=== PATIENT | female | born 1930 | race Caucasian/White ===

== ENCOUNTER 2017-07-03 10:34 | Emergency (ER) | payer MEDICARE, OTHER ==
[~2017-07-03] VITALS: Ht 167.6 cm; Wt 79.0 kg
[~2017-07-03 10:34] MED LIST: ASCO10004 PO; ASPI-496 PO; CALC-112 PO; DILT180C72 PO; ESTR0.3T PO; GABA100C PO; LOVA40TA2 PO; MAGNESIUM PO; MULT-464 PO; NAPR220C2 PO; OLME1TAB22 PO; OMEG-14 PO; PYRI50TA5 PO; SULF-169 PO; TRAM50TA2 PO; VITA400C14 PO
[2017-07-03 11:02] LABS: MICROSCOPIC AUTO
[2017-07-03 11:04] LABS: CULTURE INDICATED? YES
[2017-07-03 11:29] LABS: BASOPHILS # (AUTO) 0.02 x10^3/uL (0-0.1); BASOPHILS % (AUTO) 0 % (0-1); EOSINOPHILS # (AUTO) 0.13 x10^3/uL (0-0.4); EOSINOPHILS % (AUTO) 2 % (1-7); LYMPHOCYTES # (AUTO) 0.98 x10^3/uL (1-3.4); LYMPHOCYTES % (AUTO) 13 % (22-44); MD NO; MEAN CORPUSCULAR HEMOGLOBIN 30.2 pg (27.0-34.8); MEAN CORPUSCULAR HGB CONC 33.3 g/dL (32.4-35.8); MEAN CORPUSCULAR VOLUME 90.6 fL (80-100); MEAN PLATELET VOLUME 10.2 fL (7.4-10.4); MONOCYTES # (AUTO) 0.31 x10^3/uL (0.2-0.8); MONOCYTES % (AUTO) 4 % (2-9); NEUTROPHILS # (AUTO) 5.85 x10^3/uL (1.8-6.8); NEUTROPHILS % (AUTO) 80 % (42-75); PLATELET COUNT 168 x10^3/uL (130-400); RED BLOOD COUNT 4.89 x10^6/uL (3.82-5.3); RED CELL DISTRIBUTION WIDTH 13.1 % (9.6-15.2)
[2017-07-03] MEDS ORDERED: SODIUM CHLORIDE 0.9% 1,000ML IVBOLUS ONE (11:30)
[2017-07-03 11:42] LABS: ALBUMIN 3.9 g/dL (3.4-5.0); ANION GAP 3 mmol/L (5-15); CALCIUM 9.5 mg/dL (8.5-10.1); CHLORIDE 108 mmol/L (98-107); CREATININE 0.83 mg/dL (0.55-1.02)
[2017-07-03 11:45] LABS: TROPONIN I < 0.015 ng/mL (0.000-0.045)
[2017-07-03] MEDS ORDERED: SODIUM CHLORIDE FLUSH 10ML SYR IVF ONE (12:30)
[2017-07-03 12:49] VITALS: BP 135/77
== END 2017-07-03 12:56 | disposition home or self-care (01) ==
LOC: ED 11:14 → EDIP 12:33 → UNDOADMIN 12:33 → ED 12:56
DX: R42 Dizziness and giddiness (principal); R53.1 Weakness; E86.0 Dehydration; N30.91 Cystitis, unspecified with hematuria; I10 Essential (primary) hypertension; E78.00 Pure hypercholesterolemia, unspecified; Z90.710 Acquired absence of both cervix and uterus; Z98.51 Tubal ligation status
CPT/HCPCS: 36415; 71045; 80048; 81001; 82040; 84484; 85025; 87077; 87086; 87186; 93005; 96360; 99285; J7030

== ENCOUNTER 2019-05-03 19:02 | Inpatient (IN) | payer MEDICARE ==
[~2019-05-03] VITALS: Ht 160 cm; Wt 83.6 kg
[~2019-05-03 19:02] MED LIST changes: -PYRI50TA5 PO; +PYRI50TA7 PO
[2019-05-03] MEDS ORDERED: SODIUM CHLORIDE FLUSH 10ML SYR IVF ONE (20:00)
--- NOTE | 2019-05-03 20:00 | NUR ---
FIRST CONTACT WITH PT. PWD. PT SITTING UP IN [facility], NAD NOTED. PT REPORTS 'FEELING SICK' X SEVERAL DAYS, WORSENING TODAY WITH SOB AND "HEAVY" CHEST W/ ACTIVITY. +PRODUCTIVE COUGH W/ YELLOW SPUTUM. CP NONRADIATING. DENIES SOB/N/V. BP/SPO2/ECG MONITORING IN PLACE. NSR ON MONITOR. SPO2 >90% ON 2L BY NC. DOES NOT WEAR O2 AT BASELINE.
[2019-05-03 20:33] LABS: BASOPHILS # (AUTO) 0.06 x10^3/uL (0-0.1); BASOPHILS % (AUTO) 1 % (0-1); EOSINOPHILS # (AUTO) 0.36 x10^3/uL (0-0.4); EOSINOPHILS % (AUTO) 5 % (1-7); LYMPHOCYTES # (AUTO) 1.01 x10^3/uL (1-3.4); LYMPHOCYTES % (AUTO) 13 % (22-44); MD NO; MEAN CORPUSCULAR HGB CONC 32.1 g/dL (32.4-35.8); MEAN CORPUSCULAR VOLUME 84.1 fL (80-100); MEAN PLATELET VOLUME 9.3 fL (7.4-10.4); MONOCYTES # (AUTO) 0.66 x10^3/uL (0.2-0.8); MONOCYTES % (AUTO) 9 % (2-9); NEUTROPHILS # (AUTO) 5.58 x10^3/uL (1.8-6.8); NEUTROPHILS % (AUTO) 73 % (42-75); PLATELET COUNT 211 x10^3/uL (130-400); RED BLOOD COUNT 3.69 x10^6/uL (3.82-5.3); RED CELL DISTRIBUTION WIDTH 14.8 % (9.6-15.2)
[2019-05-03 20:39] LABS: ANION GAP 6 mmol/L (5-15); CALCIUM 8.8 mg/dL (8.5-10.1); CHLORIDE 110 mmol/L (98-107); CREATININE 0.77 mg/dL (0.55-1.02)
[2019-05-03 20:40] LABS: ALANINE AMINOTRANSFERASE 17 U/L (12-78); ALBUMIN 3.4 g/dL (3.4-5.0)
[2019-05-03 20:43] LABS: ALKALINE PHOSPHATASE 89 U/L (45-117); BILIRUBIN,TOTAL 0.3 mg/dL (0.2-1.0); TROPONIN I < 0.015 ng/mL (0.000-0.045)
--- NOTE | 2019-05-03 21:17 | NUR ---
PT ASSISTED TO BEDSIDE COMMODE. DENIES INCREASE IN CHEST HEAVINESS/SOB WITH ACTIVITY. SPO2 >90% ON 2L BY NC. AWAITING CTA
[2019-05-03] MEDS ORDERED: OMNIPAQUE 350 MG/ML, 100ML BOTTLE ONE (21:48)
--- NOTE | 2019-05-03 22:00 | NUR ---
PT SITTING UP IN [facility] YOU NOTED.
--- NOTE | 2019-05-03 22:39 | NUR ---
RA TRIAL, PT SPO2 88-91%. RESPIRATIONS EVEN/UNLABORED. PT SPEAKING IN FULL SENTENCES WO DIFFICULTY. ERP AT BEDSIDE TO DISCUSS FINDINGS AND POC
[2019-05-03] MEDS ORDERED: FUROSEMIDE 40 MG/4 ML IV ONE (23:30)
[2019-05-03] MEDS ORDERED: MORPHINE SULFATE 4 MG/ML, 1ML IVPush PRN (23:30)
[2019-05-03] MEDS ORDERED: SODIUM CHLORIDE FLUSH 10ML SYR IVF PRN (23:30)
[2019-05-03] MEDS ORDERED: AZITHROMYCIN 500 MG in SODIUM CHLORIDE 0.9% 250 ML IVPB ONE (23:30)
[2019-05-03] MEDS ORDERED: ONDANSETRON 2MG/ML, 2ML IVPush PRN (23:30)
[2019-05-03] MEDS ORDERED: CEFTRIAXONE PMX 1GM/50ML 50 ML IVPB ONE (23:30)
[2019-05-03] MEDS ORDERED: FUROSEMIDE 40 MG/4 ML ONE (23:42)
[2019-05-03] MEDS ORDERED: CEFTRIAXONE PMX 1GM/50ML 50 ML ONE (23:42)
[2019-05-03] MEDS ORDERED: POTASSIUM CHLORIDE 20 MEQ TAB.ER.PRT ONE (23:51)
--- NOTE | 2019-05-03 23:56 | NUR ---
PT MEDICATED PER EMAR. BC X2 DRAWN PRIOR TO ABX ADM. GIVEN LASIX, K+3.6. ERP AWARE. ORDERS RECEIVED FOR PO K+. PT MEDICATED PER EMAR.
[2019-05-04] MEDS ORDERED: POTASSIUM CHLORIDE 20 MEQ TAB.ER.PRT PO ONE
--- NOTE | 2019-05-04 00:27 | NUR ---
PT ASSISTED TO COMMODE. SECOND ABX INITIATED. REPORT TO NATALIA JENSEN.
[2019-05-04 01:24] VITALS: BP 174/84
[2019-05-04] MEDS ORDERED: POTASSIUM CHLORIDE 20 MEQ in SODIUM CHLORIDE 0.9% 250 ML IV ONE (03:00)
[2019-05-04 06:59] VITALS: BP 180/70
[2019-05-04] MEDS ORDERED: TEMAZEPAM 15 MG CAPSULE PO PRN (09:00)
[2019-05-04] MEDS ORDERED: GUAIFENESIN/DM 200-20MG, 10ML UDC PO PRN (09:00)
[2019-05-04] MEDS ORDERED: ACETAMINOPHEN 325 MG TABLET PO PRN (09:00)
[2019-05-04] MEDS ORDERED: DOCUSATE 100 MG CAPSULE PO PRN (09:00)
[2019-05-04] MEDS: ENOXAPARIN 40 MG/0.4 ML SQ SCH (09:27)
[2019-05-04] MEDS: SODIUM CHLORIDE FLUSH 10ML SYR IVF SCH ×2 (09:28→21:25)
[2019-05-04] MEDS ORDERED: CEFTRIAXONE PMX 1GM/50ML 50 ML IV SCH (09:30)
[2019-05-04 14:50] VITALS: BP 168/78
[2019-05-04 15:34] VITALS: BP 166/88
[2019-05-04] MEDS: MELOXICAM 15 MG TABLET PO SCH (15:35)
[2019-05-04] MEDS: FUROSEMIDE 20 MG TABLET PO SCH (15:35)
[2019-05-04 19:30] VITALS: BP 128/60
[2019-05-04] MEDS ORDERED: DILTIAZEM CD 180 MG CAP.ER.24H PO SCH (21:00)
[2019-05-04] MEDS ORDERED: DILTIAZEM 240 MG CAP.ER.24H PO SCH (21:00)
[2019-05-04] MEDS: GABAPENTIN 100 MG CAPSULE PO SCH (21:24)
[2019-05-05 00:18] VITALS: BP 154/77
[2019-05-05 05:26] LABS: ANION GAP 6 mmol/L (5-15); CALCIUM 9.1 mg/dL (8.5-10.1); CHLORIDE 105 mmol/L (98-107)
[2019-05-05 05:27] LABS: CREATININE 0.83 mg/dL (0.55-1.02)
[2019-05-05 05:31] LABS: BASOPHILS # (AUTO) 0.03 x10^3/uL (0-0.1); BASOPHILS % (AUTO) 1 % (0-1); EOSINOPHILS # (AUTO) 0.39 x10^3/uL (0-0.4); EOSINOPHILS % (AUTO) 7 % (1-7); LYMPHOCYTES # (AUTO) 1.27 x10^3/uL (1-3.4); LYMPHOCYTES % (AUTO) 23 % (22-44); MD NO; MEAN CORPUSCULAR HEMOGLOBIN 27.4 pg (27.0-34.8); MEAN CORPUSCULAR HGB CONC 32.6 g/dL (32.4-35.8); MEAN CORPUSCULAR VOLUME 84.2 fL (80-100); MEAN PLATELET VOLUME 9.9 fL (7.4-10.4); MONOCYTES # (AUTO) 0.68 x10^3/uL (0.2-0.8); MONOCYTES % (AUTO) 12 % (2-9); NEUTROPHILS # (AUTO) 3.28 x10^3/uL (1.8-6.8); NEUTROPHILS % (AUTO) 58 % (42-75); PLATELET COUNT 204 x10^3/uL (130-400); RED BLOOD COUNT 3.66 x10^6/uL (3.82-5.3); RED CELL DISTRIBUTION WIDTH 14.9 % (9.6-15.2)
[2019-05-05 07:20] VITALS: BP 170/74
[2019-05-05] MEDS ORDERED: POTASSIUM CHLORIDE 20 MEQ TAB.ER.PRT PO SCH (08:00)
[2019-05-05] MEDS: ENOXAPARIN 40 MG/0.4 ML SQ SCH (09:00)
[2019-05-05] MEDS: FUROSEMIDE 20 MG TABLET PO SCH (09:00)
[2019-05-05] MEDS ORDERED: AZITHROMYCIN 500 MG TABLET PO SCH (09:00)
[2019-05-05] MEDS ORDERED: ASPIRIN 81 MG TABLET EC PO SCH (09:00)
[2019-05-05] MEDS ORDERED: LOVASTATIN 40 MG TABLET PO SCH (09:00)
[2019-05-05] MEDS: GABAPENTIN 100 MG CAPSULE PO SCH (09:01)
[2019-05-05] MEDS: MELOXICAM 15 MG TABLET PO SCH (09:01)
[2019-05-05] MEDS: SODIUM CHLORIDE FLUSH 10ML SYR IVF SCH (09:01)
[2019-05-05 10:00] VITALS: BP 159/84
[2019-05-05 12:00] VITALS: BP 170/80
[2019-05-05] MEDS ORDERED: FURO20TA3 PO (13:50)
[2019-05-05] MEDS ORDERED: POTA20TA6 PO (13:50)
[2019-05-05] MEDS ORDERED: LOSA25TA25 PO (13:50)
[2019-05-05] MEDS ORDERED: AZIT500T10 PO (13:50)
[2019-05-05] MEDS ORDERED: MELO15TA24 PO (13:50)
[2019-05-05] MEDS ORDERED: LOSARTAN 25MG TABLET PO SCH (14:00)
== END 2019-05-05 15:36 | disposition home or self-care (01) | DRG 202 ==
LOC: ED 23:56 → EDIP 05-04 00:39 → 5SO 05-04 01:25 → DCLOUNGE 05-05 15:36
PROVIDERS: ADMIT Internal Medicine; ATTEND Internal Medicine
DX: J20.9 Acute bronchitis, unspecified (principal); I50.20 Unspecified systolic (congestive) heart failure; I11.0 Hypertensive heart disease with heart failure; Z88.7 Allergy status to serum and vaccine; E78.00 Pure hypercholesterolemia, unspecified; E78.5 Hyperlipidemia, unspecified; M16.12 Unilateral primary osteoarthritis, left hip; R09.02 Hypoxemia; Z82.49 Family history of ischemic heart disease and other diseases of the circulatory system; Z90.49 Acquired absence of other specified parts of digestive tract; Z90.710 Acquired absence of both cervix and uterus; Z96.642 Presence of left artificial hip joint; Z98.41 Cataract extraction status, right eye; Z98.42 Cataract extraction status, left eye
CPT/HCPCS: 36415; 71045; 71275; 80048; 80053; 83735; 83880; 84484; 85025; 87040; 93005; 93306; 96365; G0378; J0456; J0696; J1650; J1940; J3480; Q9967; J7050

== ENCOUNTER 2019-06-04 12:30 | Observation (INO) | payer MEDICARE ==
[~2019-06-04] VITALS: Ht 160 cm; Wt 82.4 kg
[~2019-06-04 12:30] MED LIST changes: +AZIT500T10 PO; +FURO20TA3 PO; +LOSA25TA25 PO; +MELO15TA24 PO; +POTA20TA6 PO
--- NOTE | 2019-06-04 12:48 | NUR ---
Pt BIB [facility] from home with c/o intermittent substernal CP radiating to back x1 hour. Pt states pain when present is "dull and aching" also c/o nausea, no vomiting. Pt states no pain currently. Pt placed in gown, positioned for comfort in bed. Continuous oxygen, heart and BP monitors applied, all safety measures observed.
--- NOTE | 2019-06-04 12:55 | NUR ---
break RN note: report received from NATALIA Leal. EKG taken by this RN upon arrival, given to MD De Guzman for review. MD at bedside for initial assessment at this time.
[2019-06-04 13:14] LABS: BASOPHILS # (AUTO) 0.03 x10^3/uL (0-0.1); BASOPHILS % (AUTO) 0 % (0-1); EOSINOPHILS # (AUTO) 0.11 x10^3/uL (0-0.4); EOSINOPHILS % (AUTO) 1 % (1-7); LYMPHOCYTES % (AUTO) 11 % (22-44); MD NO; MEAN CORPUSCULAR HEMOGLOBIN 24.5 pg (27.0-34.8); MEAN PLATELET VOLUME 9.2 fL (7.4-10.4); MONOCYTES # (AUTO) 0.78 x10^3/uL (0.2-0.8); MONOCYTES % (AUTO) 9 % (2-9); NEUTROPHILS # (AUTO) 7.23 x10^3/uL (1.8-6.8); NEUTROPHILS % (AUTO) 79 % (42-75); PLATELET COUNT 241 x10^3/uL (130-400); RED BLOOD COUNT 4.75 x10^6/uL (3.82-5.3); RED CELL DISTRIBUTION WIDTH 16.6 % (9.6-15.2)
[2019-06-04 13:24] LABS: ALBUMIN 3.8 g/dL (3.4-5.0); ANION GAP 4 mmol/L (5-15); CALCIUM 9.5 mg/dL (8.5-10.1); CHLORIDE 104 mmol/L (98-107)
[2019-06-04 13:29] LABS: CREATININE 0.92 mg/dL (0.55-1.02); TROPONIN I < 0.015 ng/mL (0.000-0.045)
--- NOTE | 2019-06-04 13:30 | NUR ---
Pt provided warm blanket per request, denies other needs.
--- NOTE | 2019-06-04 13:37 | NUR ---
dr mensah spoke with dr guo
[2019-06-04] MEDS ORDERED: MORPHINE SULFATE 4 MG/ML, 1ML IVPush PRN (14:00)
[2019-06-04] MEDS ORDERED: ONDANSETRON 2MG/ML, 2ML IVPush ONE (14:00)
[2019-06-04] MEDS ORDERED: ONDANSETRON 2MG/ML, 2ML ONE (14:07)
[2019-06-04] MEDS ORDERED: MORPHINE SULFATE 4 MG/ML, 1ML ONE (14:08)
--- NOTE | 2019-06-04 14:10 | NUR ---
TASK RN: CONTACT WITH PT, "I'M SO UNCOMFORTABLE. MY CHEST. I DONT KNOW WHAT TO DO" DISCUSSED WITH PT, ORDER FOR MORPHINE AND ZOFRAN. PT DENIES NAUSEA AT THIS TIME. PT AGREEABLE TO MEDICAITONS ORDERED.
[2019-06-04] MEDS ORDERED: GABA100C PO (14:31)
[2019-06-04] MEDS ORDERED: CRAN425C4 PO (14:31)
[2019-06-04] MEDS ORDERED: AMOX-291 PO (14:31)
[2019-06-04] MEDS ORDERED: ROSU5TAB PO (14:31)
[2019-06-04] MEDS ORDERED: SPIR50TA4 PO (14:31)
--- NOTE | 2019-06-04 14:32 | NUR ---
DR CULP AT BEDSIDE TO EVAL PT. PT STATES "PAIN A LITTLE BETTER THAN IT WAS" MED REC COMPLETED FROM LIST PT PROVIDED.
[2019-06-04] MEDS ORDERED: NITROGLYCERIN 0.4 MG BOTTLE (25 TABS) SL PRN (15:00)
[2019-06-04] MEDS ORDERED: NITROGLYCERIN 0.4 MG/SPRAY SL PRN (15:00)
[2019-06-04 16:33] VITALS: BP 89/50
[2019-06-04] MEDS ORDERED: NITROGLYCERIN OINT 2%, 1GM TP ONE (17:00)
[2019-06-04 17:44] LABS: TROPONIN I < 0.015 ng/mL (0.000-0.045)
[2019-06-04 20:47] VITALS: BP 105/58
[2019-06-04] MEDS ORDERED: DILTIAZEM 240 MG CAP.ER.24H PO SCH (21:00)
[2019-06-04] MEDS ORDERED: OMNIPAQUE 350 MG/ML, 100ML BOTTLE ONE (23:38)
[2019-06-05 02:38] VITALS: BP 125/68
[2019-06-05 07:52] VITALS: BP 113/59
[2019-06-05] MEDS ORDERED: SPIRONOLACTONE 50 MG TABLET PO SCH (09:00)
[2019-06-05] MEDS ORDERED: ASPIRIN 81 MG TABLET EC PO SCH (09:00)
[2019-06-05] MEDS ORDERED: LOSARTAN 25MG TABLET PO SCH (09:00)
[2019-06-05] MEDS ORDERED: REGADENOSON 0.4 MG/5 ML SYRINGE ONE (09:12)
[2019-06-05 09:53] LABS: TROPONIN I < 0.015 ng/mL (0.000-0.045)
[2019-06-05 13:49] VITALS: BP 106/65
== END 2019-06-05 14:04 | disposition home or self-care (01) ==
LOC: ED 13:08 → EDIP 13:51 → INTOOBSV 13:51 → 5SO 15:53
PROVIDERS: ADMIT Internal Medicine; ATTEND Internal Medicine
DX: R07.89 Other chest pain (principal); E78.00 Pure hypercholesterolemia, unspecified; F41.1 Generalized anxiety disorder; I11.0 Hypertensive heart disease with heart failure; F41.9 Anxiety disorder, unspecified; I50.9 Heart failure, unspecified; Z60.2 Problems related to living alone; Z90.710 Acquired absence of both cervix and uterus; Z79.899 Other long term (current) drug therapy
CPT/HCPCS: 36415; 71045; 71260; 78452; 80048; 82040; 84484; 85025; 93005; 93017; 96374; 96375; 99285; A9502; G0378; J2270; J2405; J2785; Q9967